=== PATIENT | male | born 2000 | race Two or more races ===

== ENCOUNTER 2020-10-27 21:03 | Emergency (ER) | payer OTHER ==
[~2020-10-27] VITALS: Ht 167.6 cm; Wt 63.5 kg
== END 2020-10-27 22:45 | disposition home or self-care (01) ==
LOC: ED 21:03
DX: R07.89 Other chest pain (principal); F17.200 Nicotine dependence, unspecified, uncomplicated
CPT/HCPCS: 71101; 99284-25

== ENCOUNTER 2021-07-31 05:39 | Emergency (ER) | payer OTHER ==
[~2021-07-31] VITALS: Ht 167.6 cm; Wt 69.0 kg
== END 2021-07-31 06:35 | disposition home or self-care (01) ==
LOC: ED 05:39
DX: R30.0 Dysuria (principal); F17.200 Nicotine dependence, unspecified, uncomplicated
CPT/HCPCS: 81001; 99283